=== PATIENT | male | born 1970 | race Caucasian/White ===

== ENCOUNTER → 2016-09-21 | Outpatient (CLI) | payer MEDICAID ==
[~2016-09-21] MED LIST: BISOPROLOL FUMA1 TA3 PO; BUPROPION HCL75 M1 PO; GABAPENTIN300 M1 PO; KEFLEX 500MG.500 MG PO; METOPROLOL25 MG PO; NEURONTIN 300M300 MG PO; NORCO 325 MG-51 TAB PO; TRAMADOL 50MG T1 PAK PO; TRAMADOL 50MG T50 MG PO; TRAMADOL50 M1 PO; XANAX 1MG TABLET1 MG PO; ZESTRIL5 MG PO
== END ==
LOC: LAB 11:19
DX: B19.20 Unspecified viral hepatitis C without hepatic coma (principal)

== ENCOUNTER → 2016-10-30 | Outpatient (CLI) | payer MEDICAID ==
[2016-10-30 18:34] LABS: AMPHETAMINES/METAMPHETAMINES NEGATIVE ng/mL (<1000)
== END ==
LOC: LAB 17:32
PROVIDERS: Emergency Medicine
DX: F41.9 Anxiety disorder, unspecified (principal)

== ENCOUNTER → 2016-12-18 | Outpatient (CLI) | payer MEDICAID ==
[2016-12-18 17:06] LABS: AMPHETAMINES/METAMPHETAMINES NEGATIVE ng/mL (<1000)
== END ==
LOC: LAB 16:28
PROVIDERS: Emergency Medicine
DX: Z79.899 Other long term (current) drug therapy (principal)